=== PATIENT | female | born 1965 | race Caucasian/White ===

== ENCOUNTER 2016-08-26 16:59 | Emergency (ER) | payer OTHER ==
[2016-08-26 17:38] VITALS: BP 114/61; PULSE 71; TEMP 97.8; BMI 38.0
[2016-08-26] MEDS ORDERED: KETOROLAC TROMETHAMINE 60 MG/2 ML VIAL IM ONE (19:37)
[2016-08-26] MEDS ORDERED: diazePAM 5 MG TABLET PO ONE (19:38)
[2016-08-26] MEDS ORDERED: KETOROLAC TROMETHAMINE 60 MG/2 ML VIAL ONE (19:40)
[2016-08-26] MEDS ORDERED: diazePAM 5 MG TABLET ONE (19:40)
--- NOTE | 2016-08-26 20:36 | PDOC ---
History of Present Illness - General Chief Complaint: Back Pain Stated Complaint: BACK PAIN/LT LEG NUMB Time Seen by Provider: 08/26/16 19:10 History Source: Patient Exam Limitations: No Limitations - History of Present Illness Initial Comments: 08/26/16 20:31 bACK PAIN X 4 DAYS; NO TRAUMA; NO FEVER, CHILLS Occurred: reports: just prior to arrival Severity: reports: mild Pain Location: reports: back Method of Injury: Yes: other (NO TRAUMA) Past History - Past Medical History Allergies/Adverse Reactions: Allergies Allergy/AdvReac Type Severity Reaction Status Date / Time No Known Allergies Allergy Verified 08/26/16 17:35 Home Medications: Ambulatory Orders Cyclobenzaprine HCl [Flexeril -] 10 mg PO TID PRN #21 tablet 01/21/16 Naproxen [Naprosyn -] 500 mg PO BID PRN #14 tablet 01/21/16 Asthma: Yes GI Disorders: Yes (COLITIS, Diverticulitis, DIVERTICULOSIS) HTN: Yes Hypercholesterolemia: Yes Suicide Attempt (Hx): No - Immunization History Immunization Up to Date: Yes - Psycho/Social/Smoking Cessation Hx Anxiety: No Suicidal Ideation: No Smoking Status: Yes Smoking History: Current some day smoker Have you smoked in the past 12 months: Yes Number of Cigarettes Smoked Daily: 2 If you are a former smoker, when did you quit?: DID NOT HAVE BOOKLET IN ER Information on smoking cessation initiated: No 'Breaking Loose' booklet given: 12/09/15 Hx Alcohol Use: No Drug/Substance Use Hx: No Substance Use Type: None Hx Substance Use Treatment: No Review of Systems - Review of Systems Constitutional: No: Chills, Fever, Malaise HEENTM: No: Recent change in vision, Nose Congestion Respiratory: No: Symptoms reported, Cough Cardiac (ROS): No: Symptoms Reported, Chest Pain ABD/GI: No: Symptoms Reported : No: Symptoms Reported, Burning, Dysuria, Discharge, Hematuria, Incontinence , Urgency Musculoskeletal: No: Symptoms Reported Integumentary: No: Symptoms Reported, Rash Neurological: No: Symptoms reported, Numbness, Paresthesia, Tingling, Weakness *Physical Exam - Vital Signs Last Vital Signs Temp Pulse Resp BP Pulse Ox 97.8 F 71 19 114/61 98 08/26/16 17:35 08/26/16 17:35 08/26/16 17:35 08/26/16 17:35 08/26/16 17:35 - Physical Exam General Appearance: Yes: Appropriately Dressed, Apparent Distress HEENT: positive: TMs Normal, Pharynx Normal Neck: positive: Supple. negative: Tender, Rigid, Lymphadenopathy (R), Lymphadenopathy (L) Respiratory/Chest: negative: Chest Tender, Lungs Clear Cardiovascular: positive: Regular Rhythm, Regular Rate. negative: Murmur ED Treatment Course - Medications Given in the ED: ED Medications Discontinued Medications Generic Name Dose Route Start Last Admin Trade Name Uche PRN Reason Stop Dose Admin Diazepam 5 mg 08/26/16 19:38 08/26/16 19:49 Valium - PO 08/26/16 19:39 5 mg ONCE ONE Administration Ketorolac Tromethamine 60 mg 08/26/16 19:37 08/26/16 19:49 Toradol Injection - IM 08/26/16 19:38 60 mg ONCE ONE Administration Medical Decision Making - Medical Decision Making 08/26/16 20:43 WILL TREAT WITH NAPROSYN AND FLEXERIL *DC/Admit/Observation/Transfer Diagnosis at time of Disposition: Chronic low back pain Qualifiers: Back pain laterality: left Sciatica presence: with sciatica Sciatica laterality : sciatica of left side Qualified Code(s): M54.42 - Lumbago with sciatica, left side; G89.29 - Other chronic pain - Discharge Dispostion Disposition: HOME Condition at time of disposition: Stable Admit: No - Patient Instructions Additional Instructions: PLEASE USE FLEXERIL AND NAPROSYN BEFORE; FOLLOW UP WITH PAIN MANAGEMENT; REST - Post Discharge Activity Work/School Note: Back to Work
== END 2016-08-26 20:48 | disposition home or self-care (01) ==
LOC: JERFT 16:59
PROC: 3E0233Z Introduction of Anti-inflammatory into Muscle, Percutaneous Approach (ICD-10-PCS; principal; 2016-08-26)
DX: M54.42 Lumbago with sciatica, left side (principal); G89.29 Other chronic pain; I10 Essential (primary) hypertension; J45.909 Unspecified asthma, uncomplicated; E78.00 Pure hypercholesterolemia, unspecified; Z87.19 Personal history of other diseases of the digestive system
CPT/HCPCS: 96372; 99281-25

== ENCOUNTER 2016-08-28 18:12 | Emergency (ER) | payer OTHER ==
[2016-08-28] MEDS ORDERED: OXYCODONE/APAP 5/325MG COMBO TABLET PO ONE (18:22)
--- NOTE | 2016-08-28 18:28 | PDOC ---
*Physical Exam - Vital Signs Last Vital Signs Temp Pulse Resp BP Pulse Ox 97.7 F 100 H 18 148/97 100 08/28/16 18:20 08/28/16 18:20 08/28/16 18:20 08/28/16 18:20 08/28/16 18:20 ED Treatment Course - RADIOLOGY Radiology Studies Ordered: Category Date Time Status LUMBAR SPINE CT W/O CONTRAST [CT] Stat CT Scan 08/28/16 18:23 Ordered Medical Decision Making - Medical Decision Making 08/28/16 18:26 Rapid triage: Pt comes with 2 weeks of sciatica; worse in the last 2 days. Now crying because the muscle relaxants are not helping her. Pt will have HCG done even though she has had bilateral tubal ligation; she has irregular menses. She will get a CT L-spine to r/o cord involvement. *DC/Admit/Observation/Transfer Diagnosis at time of Disposition: Spinal stenosis Sciatica Qualifiers: Laterality: left Qualified Code(s): M54.32 - Sciatica, left side - Discharge Dispostion Disposition: HOME Condition at time of disposition: Improved - Prescriptions Prescriptions: Diazepam [Valium] 5 mg PO Q8H #6 tablet MDD 3 - Referrals Referrals: Clarisa Morrow MD [Primary Care Provider] - - Patient Instructions Printed Discharge Instructions: DI for Back Pain With Sciatica Additional Instructions: Discharge Instructions: -Discontinue flexeril use while taking Valium -Valium can cause drowsiness so do not drive while taking -Stretch your affected leg/butt/back multiple times per day -Follow up with your pain management doctor and your physical therapist as soon as possible
[2016-08-28 18:36] VITALS: BP 148/97; PULSE 100; TEMP 97.7; BMI 37.7
[2016-08-28] MEDS ORDERED: OXYCODONE/APAP 5/325MG COMBO TABLET ONE (18:38)
--- NOTE | 2016-08-28 18:46 | PDOC ---
History of Present Illness - General Chief Complaint: Pain, Acute Stated Complaint: LEG PAIN Time Seen by Provider: 08/28/16 18:20 History Source: Patient Exam Limitations: No Limitations - History of Present Illness Initial Comments: CHIEF COMPLAINT: 50 y/o afebrile female with PMH L4/L5 disc herniation (sees pain management and PT), HTN who was seen here 2 days ago for sciatica here for continued symptoms. HISTORY OF PRESENT ILLNESS: The patient states she was seen here 2 days ago and at [facility] 2 days before that. She has left lower back pain that radiates down her left butt and leg. She states it's burning. She was given flexeril to go home with but states it isn't helping. She denies f/c, n/v/d, CP, SOB, abd pain, saddle anesthesia, bowel/bladder incontinence. Vital signs on arrival are notable for pulse of 100. REVIEW OF SYSTEMS: GENERAL/CONSTITUTIONAL: No fever/chills. No weakness. No weight change. HEAD, EYES, EARS, NOSE AND THROAT: No change in vision. No ear pain or discharge. No sore throat. CARDIOVASCULAR: No chest pain or shortness of breath. RESPIRATORY: No cough, wheezing, or hemoptysis. GASTROINTESTINAL: No abd pain, nausea, vomiting, diarrhea. GENITOURINARY: No dysuria, frequency, or change in urination. MUSCULOSKELETAL: No joint or muscle swelling or pain. No neck or back pain. SKIN: No rash or easy bruising. NEUROLOGIC: No headache, vertigo, loss of consciousness, or loss of sensation. PHYSICAL EXAM: GENERAL: The patient is awake, alert, and fully oriented, in moderate obvious discomfort. HEAD: Normal with no signs of trauma. ENT: Pupils equal, round and reactive to light, extraocular movements intact, sclera anicteric, conjunctiva clear. Neck supple. LUNGS: Clear to auscultation bilaterally. Normal excursion. No respiratory distress or use of accessory muscles. CV: RRR, S1/S2, no MRG. Cap refill < 2 sec. ABDOMEN: Soft, non-distended, non-tender even to deep palpation, no hepatomegaly or splenomegaly, no masses. BACK: Midline lumbar spine TTP at level of L4/5 which patient admits is normal for her. Pain reproduced with palpation of left gluteal and piriformis muscles. EXTREMITIES: Normal range of motion, no edema. NEUROLOGICAL: Normal speech, normal gait. CN II-XII grossly intact. No saddle anesthesia. PSYCH: Normal mood, normal affect. SKIN: Warm, dry, normal turgor, no rashes or lesions noted. Past History - Past Medical History Allergies/Adverse Reactions: Allergies Allergy/AdvReac Type Severity Reaction Status Date / Time No Known Allergies Allergy Verified 08/28/16 18:19 Home Medications: Ambulatory Orders Cyclobenzaprine HCl [Flexeril -] 10 mg PO TID PRN #21 tablet 01/21/16 Naproxen [Naprosyn -] 500 mg PO BID PRN #14 tablet 01/21/16 Diazepam [Valium] 5 mg PO Q8H #6 tablet MDD 3 08/28/16 Asthma: Yes GI Disorders: Yes (COLITIS, Diverticulitis, DIVERTICULOSIS) HTN: Yes Hypercholesterolemia: Yes Suicide Attempt (Hx): No - Immunization History Immunization Up to Date: Yes - Psycho/Social/Smoking Cessation Hx Anxiety: No Suicidal Ideation: No Smoking Status: Yes Smoking History: Never smoked Have you smoked in the past 12 months: Yes Number of Cigarettes Smoked Daily: 2 If you are a former smoker, when did you quit?: DID NOT HAVE BOOKLET IN ER Information on smoking cessation initiated: Yes 'Breaking Loose' booklet given: 08/28/16 Hx Alcohol Use: No Drug/Substance Use Hx: No Substance Use Type: None Hx Substance Use Treatment: No *Physical Exam - Vital Signs Last Vital Signs Temp Pulse Resp BP Pulse Ox 97.7 F 100 H 18 148/97 100 08/28/16 18:20 08/28/16 18:20 08/28/16 18:20 08/28/16 18:20 08/28/16 18:20 Medical Decision Making - Medical Decision Making A/P: 50 y/o female with sciatica. No signs of cord compression. Percocet given in triage. HCG and Lumbar spine CT ordered in triage. Plan is as follows: 1. Await CT results 2. PO valium CT scan lumbar spine IMPRESSION: Degenerative spine disease with lower lumbar neuroforaminal narrowing. This appears similar to an MRI from 10/2015. The patient states she feels better after valium. Showed her some stretching to do multiple times per day at home as well to help with the pain. Will send # 6 pills of valium to the pharmacy. Instructed the patient not to drive while taking. Suggested she f/u with her pain management doc and her PT as soon as possible. The patient verbalizes understanding of all instructions, has no further questions and is awaiting discharge. *DC/Admit/Observation/Transfer Diagnosis at time of Disposition: Sciatica Qualifiers: Laterality: left Qualified Code(s): M54.32 - Sciatica, left side - Discharge Dispostion Disposition: HOME Condition at time of disposition: Improved - Prescriptions Prescriptions: Diazepam [Valium] 5 mg PO Q8H #6 tablet MDD 3 - Referrals Referrals: Clarisa Morrow MD [Primary Care Provider] - - Patient Instructions Printed Discharge Instructions: DI for Back Pain With Sciatica Additional Instructions: Discharge Instructions: -Discontinue flexeril use while taking Valium -Valium can cause drowsiness so do not drive while taking -Stretch your affected leg/butt/back multiple times per day -Follow up with your pain management doctor and your physical therapist as soon as possible
[2016-08-28] MEDS ORDERED: diazePAM 5 MG TABLET PO ONE (19:35)
[2016-08-28] MEDS ORDERED: diazePAM 5 MG TABLET ONE (19:40)
== END 2016-08-28 21:18 | disposition home or self-care (01) ==
LOC: JER 18:12 → JERFT 18:12
DX: M54.32 Sciatica, left side (principal); I10 Essential (primary) hypertension; M51.27 Other intervertebral disc displacement, lumbosacral region
CPT/HCPCS: 72131-TC; 84703; 99281-25

== ENCOUNTER 2017-02-11 17:22 | Emergency (ER) | payer OTHER ==
[2017-02-11 17:35] VITALS: BP 154/93; PULSE 69; TEMP 97.9; BMI 37.3
[2017-02-11] MEDS ORDERED: diazePAM 5 MG TABLET PO ONE (18:24)
[2017-02-11] MEDS ORDERED: KETOROLAC TROMETHAMINE 60 MG/2 ML VIAL IM ONE (18:24)
[2017-02-11] MEDS ORDERED: diazePAM 5 MG TABLET ONE (18:27)
[2017-02-11] MEDS ORDERED: KETOROLAC TROMETHAMINE 60 MG/2 ML VIAL ONE (18:27)
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
== END 2017-02-11 19:25 | disposition home or self-care (01) ==
LOC: JER 17:22 → JERFT 17:22
PROC: 3E0233Z Introduction of Anti-inflammatory into Muscle, Percutaneous Approach (ICD-10-PCS; principal; 2017-02-11)
DX: M54.16 Radiculopathy, lumbar region (principal); V89.2XXS Person injured in unspecified motor-vehicle accident, traffic, sequela; I10 Essential (primary) hypertension; J45.909 Unspecified asthma, uncomplicated; E78.00 Pure hypercholesterolemia, unspecified; F17.210 Nicotine dependence, cigarettes, uncomplicated; Z87.19 Personal history of other diseases of the digestive system
CPT/HCPCS: 96372; 99281-25

== ENCOUNTER 2021-04-11 17:10 | Emergency (ER) | payer OTHER ==
[2021-04-11 17:18] VITALS: TEMP 97.9; BMI 37.2
[2021-04-11] MEDS ORDERED: KETOROLAC TROMETHAMINE 30 MG/1 ML VIAL IVPUSH ONE (17:41)
[2021-04-11] MEDS ORDERED: diazePAM 5 MG TABLET PO ONE (17:41)
[2021-04-11] MEDS ORDERED: KETOROLAC TROMETHAMINE 30 MG/1 ML VIAL IM ONE (17:52)
[2021-04-11] MEDS ORDERED: KETOROLAC TROMETHAMINE 30 MG/1 ML VIAL ONE (17:53)
[2021-04-11] MEDS ORDERED: diazePAM 5 MG TABLET ONE (17:54)
[2021-04-11 22:57] VITALS: BP 154/83; PULSE 73
== END 2021-04-11 22:58 | disposition home or self-care (01) ==
LOC: JER 17:10
PROC: 3E0233Z Introduction of Anti-inflammatory into Muscle, Percutaneous Approach (ICD-10-PCS; principal; 2021-04-11)
DX: M71.22 Synovial cyst of popliteal space [Baker], left knee (principal)
CPT/HCPCS: 73552-TC-LT-FY; 93971-TC; 96372; 99284-25

== ENCOUNTER 2021-11-16 21:27 | Emergency (ER) | payer OTHER ==
[2021-11-16 21:32] VITALS: BP 136/75; PULSE 102; TEMP 98.6; BMI 37.5
[2021-11-16] MEDS ORDERED: ONDANSETRON 4 MG/2 ML VIAL IVPUSH ONE (22:15)
[2021-11-16] MEDS ORDERED: ACETAMINOPHEN 1000 MG/100 ML BAG IVPB ONE (22:15)
[2021-11-16] MEDS ORDERED: SUCRALFATE 1 GM TABLET (FP) PO ONE (22:16)
[2021-11-16] MEDS ORDERED: MAG HYDROX/AL HYDROX/SIMETH 30 ML UNIT-DOSE CUP PO ONE (22:16)
[2021-11-16] MEDS ORDERED: FAMOTIDINE 20 MG/50 ML IVPB 20 MG/50 ML MG IVPB ONE (22:16)
[2021-11-16] MEDS ORDERED: LACTATED RINGERS SOLUTION 1000 ML INFUS.BAG IV ONE (22:33)
[2021-11-16] MEDS ORDERED: ONDANSETRON 4 MG/2 ML VIAL ONE (22:41)
[2021-11-16] MEDS ORDERED: SUCRALFATE 1 GM TABLET (FP) ONE (22:41)
[2021-11-16] MEDS ORDERED: ACETAMINOPHEN INJECTION 100 ML IVPB ONE (22:41)
[2021-11-16] MEDS ORDERED: MAG HYDROX/AL HYDROX/SIMETH 30 ML UNIT-DOSE CUP ONE (22:41)
[2021-11-16 22:51] LABS: BASO % 0.3 % (0-2.0); CHLORIDE 102 mmol/L (98-107); HEMATOCRIT 41.2 % (32.4-45.2); HEMOGLOBIN 13.4 GM/dL (10.7-15.3); LYMPH % 9.7 % (8-40); MCH 29.6 pg (25.7-33.7); MCHC 32.7 g/dl (32.0-36.0); MEAN CELL VOLUME 90.6 fl (80-96); MEAN PLT VOLUME 9.7 fl (7.5-11.1); MONO % 5.2 % (3.8-10.2); NEUT % 82.8 % (42.8-82.8); PLATELET COUNT 221 10^3/uL (134-434); RBC 4.54 M/mm3 (3.60-5.2); RDW 13.8 % (11.6-15.6); SODIUM 126 mmol/L (136-145); WHITE BLOOD COUNT 8.3 K/mm3 (4.0-10.0)
[2021-11-16 22:53] LABS: ALBUMIN 3.6 g/dl (3.4-5.0); BLOOD UREA NITROGEN 19.5 mg/dL (7-18); CALCIUM 8.8 mg/dL (8.5-10.1); CO2 24 mmol/L (21-32); GLUCOSE,RANDOM 113 mg/dL (74-106); LIPASE 118 U/L (73-393); MAGNESIUM 2.6 mg/dL (1.8-2.4)
[2021-11-16 22:56] LABS: CREATININE 0.8 mg/dL (0.55-1.3)
[2021-11-16 22:58] LABS: TOT PROT 7.8 g/dl (6.4-8.2)
[2021-11-16 22:59] LABS: ALK PHOS 72 U/L (45-117)
[2021-11-16] MEDS ORDERED: FAMOTIDINE 10 MG/ML VIAL IVPB ONE (23:08)
[2021-11-16 23:42] LABS: CALCIUM 9.2 mg/dL (8.5-10.1)
[2021-11-16 23:44] LABS: ANION GAP 1 MMOL/L (8-16); SGOT/AST 132 U/L (15-37); SGPT/ALT 67 U/L (13-61)
[2021-11-17 00:31] LABS: CREATININE 0.7 mg/dL (0.55-1.3)
[2021-11-17 00:32] LABS: BILIRUBIN,TOTAL 0.2 mg/dL (0.2-1); TOT PROT 6.8 g/dl (6.4-8.2)
[2021-11-17] MEDS ORDERED: LACTATED RINGERS SOLUTION 1000 ML INFUS.BAG IV ONE (00:37)
[2021-11-17] MEDS ORDERED: morphine CARPU-JECT 4 MG/1 ML DISP.SYRIN IVPUSH ONE (00:37)
[2021-11-17] MEDS ORDERED: morphine SULFATE 4 MG/ML VIAL ONE (00:41)
[2021-11-17 01:09] LABS: ALBUMIN 3.8 g/dl (3.4-5.0); BLOOD UREA NITROGEN 18.6 mg/dL (7-18)
== END 2021-11-17 02:22 | disposition home or self-care (01) ==
LOC: JER 21:27
PROC: 3E033GC Introduction of Other Therapeutic Substance into Peripheral Vein, Percutaneous Approach (ICD-10-PCS; principal; 2021-11-16)
DX: R10.13 Epigastric pain (principal)
CPT/HCPCS: 36415; 71045-TC-FY; 74177-TC; 76705-TC; 80053; 83690; 83735; 84484; 84703; 85025; 93005; 93010; 99285-25; C9803-CS; U0003; U0005

== ENCOUNTER 2022-01-27 05:27 | Emergency (ER) | payer OTHER ==
[2022-01-27 05:41] VITALS: BP 116/76; PULSE 78; TEMP 98.6; BMI 36.3
[2022-01-27] MEDS ORDERED: ACETAMINOPHEN 1000 MG/100 ML BAG IVPB ONE (06:01)
[2022-01-27] MEDS ORDERED: ACETAMINOPHEN INJECTION 100 ML IVPB ONE (06:17)
[2022-01-27 07:21] LABS: BLOOD UREA NITROGEN 11.5 mg/dL (7-18); CALCIUM 9.3 mg/dL (8.5-10.1)
[2022-01-27 07:24] LABS: CREATININE 0.7 mg/dL (0.55-1.3)
[2022-01-27 07:26] LABS: BILIRUBIN,TOTAL 0.3 mg/dL (0.2-1); TOT PROT 7.3 g/dl (6.4-8.2)
[2022-01-27] MEDS ORDERED: ONDANSETRON 4 MG/2 ML VIAL IVPUSH ONE (07:37)
[2022-01-27] MEDS ORDERED: SODIUM CHLORIDE 0.9% 500 ML INFUS.BAG IV ONE (07:38)
[2022-01-27] MEDS ORDERED: FAMOTIDINE 20 MG/50 ML IVPB 20 MG/50 ML MG IVPB ONE ×2 (07:38→08:23)
[2022-01-27] MEDS ORDERED: morphine CARPU-JECT 2 MG/1 ML DISP.SYRIN IVPUSH ONE (07:45)
[2022-01-27] MEDS ORDERED: MAG HYDROX/AL HYDROX/SIMETH 30 ML UNIT-DOSE CUP PO ONE (07:47)
[2022-01-27] MEDS ORDERED: ONDANSETRON 4 MG/2 ML VIAL ONE (08:23)
[2022-01-27 08:44] LABS: BASO % 0.3 % (0-2.0); EOS % 1.4 % (0-4.5); HEMATOCRIT 41.4 % (32.4-45.2); HEMOGLOBIN 13.7 GM/dL (10.7-15.3); LYMPH % 17.7 % (8-40); MCH 30.8 pg (25.7-33.7); MCHC 33.1 g/dl (32.0-36.0); MEAN CELL VOLUME 93.2 fl (80-96); MEAN PLT VOLUME 9.7 fl (7.5-11.1); MONO % 7.7 % (3.8-10.2); NEUT % 72.9 % (42.8-82.8); PLATELET COUNT 182 10^3/uL (134-434); RBC 4.45 M/mm3 (3.60-5.2); RDW 14.9 % (11.6-15.6); WHITE BLOOD COUNT 8.9 K/mm3 (4.0-10.0)
[2022-01-27] MEDS ORDERED: MAG HYDROX/AL HYDROX/SIMETH 30 ML UNIT-DOSE CUP ONE (08:44)
[2022-01-27 08:46] LABS: URINE APPEARANCE CLEAR; URINE BILIRUBIN NEGATIVE (NEGATIVE); URINE COLOR YELLOW; URINE GLUCOSE (UA) NEGATIVE (NEGATIVE); URINE KETONE NEGATIVE (NEGATIVE); URINE LEUK ESTERASE NEGATIVE (NEGATIVE); URINE NITRITE NEGATIVE (NEGATIVE); URINE PROTEIN NEGATIVE (NEGATIVE); URINE UROBILINOGEN 0.2 mg/dL (0.2-1.0)
== END 2022-01-27 11:48 | disposition home or self-care (01) ==
LOC: JER 05:27
PROC: 3E033GC Introduction of Other Therapeutic Substance into Peripheral Vein, Percutaneous Approach (ICD-10-PCS; principal; 2022-01-27)
DX: R10.84 Generalized abdominal pain (principal)
CPT/HCPCS: 71045-TC-FY; 76705-TC; 80053; 81003; 83690; 84484; 85025; 87086; 93005; 93010; 99285-25

== ENCOUNTER 2023-04-28 21:39 | Inpatient (IN) | payer OTHER ==
[2023-04-28 21:49] VITALS: BMI 35.4
[2023-04-28] MEDS ORDERED: FAMOTIDINE 20 MG/50 ML IVPB 20 MG/50 ML MG IVPB ONE ×2 (22:15→22:26)
[2023-04-28] MEDS ORDERED: SODIUM CHLORIDE 0.9% 500 ML INFUS.BAG IV ONE (22:15)
[2023-04-28] MEDS ORDERED: ONDANSETRON 4 MG/2 ML VIAL IVPUSH ONE (22:15)
[2023-04-28] MEDS ORDERED: ACETAMINOPHEN 1000 MG/100 ML BAG IVPB ONE (22:15)
[2023-04-28] MEDS ORDERED: MAG HYDROX/AL HYDROX/SIMETH -MYLANTA- ORAL SUSPENSION PO ONE (22:17)
[2023-04-28] MEDS ORDERED: ACETAMINOPHEN INJECTION 100 ML IVPB ONE (22:25)
[2023-04-28] MEDS ORDERED: ONDANSETRON 4 MG/2 ML VIAL ONE (22:26)
[2023-04-28] MEDS ORDERED: MAG HYDROX/AL HYDROX/SIMETH 30 ML UNIT-DOSE CUP ONE (22:26)
[2023-04-28 22:53] LABS: HEMATOCRIT 43.5 % (32.4-45.2); HEMOGLOBIN 14.6 GM/dL (10.7-15.3); MCH 30.5 pg (25.7-33.7); MCHC 33.5 g/dl (32.0-36.0); MEAN CELL VOLUME 91.1 fl (80-96); MONO % 5.4 % (3.8-10.2); NEUT % 76.6 % (42.8-82.8); PLATELET COUNT 261 10^3/uL (134-434); RBC 4.77 M/mm3 (3.60-5.2); RDW 14.3 % (11.6-15.6); WHITE BLOOD COUNT 10.4 K/mm3 (4.0-10.0)
[2023-04-28 23:16] LABS: POTASSIUM 3.5 mmol/L (3.5-5.1)
[2023-04-28 23:18] LABS: CALCIUM 8.7 mg/dL (8.5-10.1)
[2023-04-28 23:19] LABS: ALBUMIN 3.6 g/dl (3.4-5.0)
[2023-04-28 23:23] LABS: BILIRUBIN,TOTAL 0.2 mg/dL (0.2-1); TOT PROT 7.1 g/dl (6.4-8.2)
[2023-04-29] MEDS: SUCRALFATE 1 GM/10 ML UNIT DOSE CUPS PO STA ×2 (01:38→13:28)
[2023-04-29] MEDS ORDERED: SUCRALFATE 1 GM TABLET (FP) ONE ×2 (01:40→08:20)
[2023-04-29] MEDS ORDERED: morphine CARPU-JECT 4 MG/1 ML DISP.SYRIN IVPUSH ONE (02:10)
[2023-04-29] MEDS ORDERED: morphine SULFATE 4 MG/ML VIAL ONE (02:35)
[2023-04-29] MEDS ORDERED: ACETAMINOPHEN 1000 MG/100 ML BAG IVPB ONE (07:20)
[2023-04-29] MEDS ORDERED: SUCRALFATE 1 GM TABLET (FP) PO ONE (07:20)
[2023-04-29] MEDS ORDERED: MAG HYDROX/AL HYDROX/SIMETH -MYLANTA- ORAL SUSPENSION PO ONE (07:20)
[2023-04-29] MEDS ORDERED: FAMOTIDINE 20 MG/50 ML IVPB 20 MG/50 ML MG IVPB ONE ×2 (07:20→08:20)
[2023-04-29] MEDS ORDERED: ACETAMINOPHEN INJECTION 100 ML IVPB ONE ×2 (08:20→14:25)
[2023-04-29] MEDS ORDERED: MAG HYDROX/AL HYDROX/SIMETH 30 ML UNIT-DOSE CUP ONE (08:20)
[2023-04-29] MEDS ORDERED: KETOROLAC TROMETHAMINE 30 MG/1 ML VIAL ONE ×2 (10:10→17:22)
[2023-04-29] MEDS ORDERED: PANTOPRAZOLE SODIUM 40 MG VIAL ONE ×2 (10:11→23:17)
[2023-04-29] MEDS: SODIUM CHLORIDE 1,000 ML IV SCH (10:24)
[2023-04-29] MEDS: PANTOPRAZOLE SODIUM 40 MG VIAL IVPUSH SCH ×2 (10:24→23:19)
[2023-04-29] MEDS: KETOROLAC TROMETHAMINE 30 MG/1 ML VIAL IVPUSH PRN ×2 (10:24→17:22)
[2023-04-29] MEDS: ACETAMINOPHEN 1000 MG/100 ML BAG IVPB PRN (14:28)
[2023-04-29] MEDS ORDERED: ceFAZolin SODIUM 1 GM VIAL ONE (17:41)
[2023-04-29] MEDS: CEFAZOLIN 1 GM in DEXTROSE 5%-WATER - 50 ML IVPB SCH (18:09)
[2023-04-30] MEDS: ACETAMINOPHEN 1000 MG/100 ML BAG IVPB PRN ×3 (00:20→21:02)
[2023-04-30] MEDS: CEFAZOLIN 1 GM in DEXTROSE 5%-WATER - 50 ML IVPB SCH ×2 (02:32→09:44)
[2023-04-30] MEDS: KETOROLAC TROMETHAMINE 30 MG/1 ML VIAL IVPUSH PRN (05:18)
[2023-04-30] MEDS: SODIUM CHLORIDE 1,000 ML IV SCH ×2 (09:37→17:15)
[2023-04-30] MEDS: PANTOPRAZOLE SODIUM 40 MG VIAL IVPUSH SCH ×2 (09:44→21:03)
[2023-04-30 10:17] LABS: HEMATOCRIT 39.5 % (32.4-45.2); HEMOGLOBIN 13.2 GM/dL (10.7-15.3); MCH 30.7 pg (25.7-33.7); MCHC 33.3 g/dl (32.0-36.0); MEAN PLT VOLUME 10.3 fl (7.5-11.1); PLATELET COUNT 226 10^3/uL (134-434); RBC 4.29 M/mm3 (3.60-5.2); RDW 14.2 % (11.6-15.6); WHITE BLOOD COUNT 4.7 K/mm3 (4.0-10.0)
[2023-04-30 12:20] LABS: POTASSIUM 3.9 mmol/L (3.5-5.1)
[2023-04-30 12:21] LABS: ALBUMIN 3.5 g/dl (3.4-5.0)
[2023-04-30 12:22] LABS: BLOOD UREA NITROGEN 10.8 mg/dL (7-18); CALCIUM 8.7 mg/dL (8.5-10.1)
[2023-04-30 12:24] LABS: CREATININE 0.6 mg/dL (0.55-1.3)
[2023-04-30 12:26] LABS: TOT PROT 6.6 g/dl (6.4-8.2)
[2023-04-30 12:27] LABS: BILIRUBIN,TOTAL 0.2 mg/dL (0.2-1)
[2023-04-30] MEDS ORDERED: PROPOFOL 20 ML ONE ×2 (13:10→15:16)
[2023-04-30] MEDS ORDERED: FENTANYL CITRATE/PF 50 MCG/ML VIAL ONE ×5 (13:10→16:28)
[2023-04-30] MEDS ORDERED: MIDAZOLAM HCL 2 MG/2 ML SINGLE DOSE VIAL ONE (13:11)
[2023-04-30] MEDS ORDERED: ROCURONIUM BROMIDE 50 MG/5 ML SYRINGE ONE (13:11)
[2023-04-30] MEDS ORDERED: LACTATED RINGERS SOLUTION 1,000 ML IV SCH (13:15)
[2023-04-30] MEDS ORDERED: ONDANSETRON 4 MG/2 ML VIAL IVPUSH PRN ×2 (13:15→15:40)
[2023-04-30] MEDS ORDERED: BUPIVACAINE HCL/PF 0.5% (5MG/ML) 10 ML VIAL ONE (13:22)
[2023-04-30] MEDS ORDERED: ceFAZolin SODIUM 1 GM VIAL IVPB ONE (14:08)
[2023-04-30] MEDS ORDERED: BUPIVACAINE HCL/PF 0.5% (5MG/ML) 10 ML VIAL IJ ONE ×2 (14:16)
[2023-04-30] MEDS ORDERED: NEOSTIGMINE METHYLSULFATE 0.5 MG/1 ML - 10 ML MDV ONE (15:05)
[2023-04-30] MEDS ORDERED: IBUPROFEN 600 MG TABLET (FP) PO PRN (15:40)
[2023-04-30] MEDS ORDERED: ACETAMINOPHEN 500 MG TABLET (FP) PO PRN (15:40)
[2023-04-30] MEDS ORDERED: ACETAMINOPHEN INJECTION 100 ML IVPB ONE (16:04)
[2023-04-30] MEDS ORDERED: ACETAMINOPHEN 1000 MG/100 ML BAG IVPB ONE (16:06)
[2023-04-30] MEDS: FENTANYL CITRATE/PF 50 MCG/ML VIAL IVPUSH PRN ×4 (16:17→16:35)
[2023-04-30] MEDS: oxyCODONE HCL 5 MG TABLET PO PRN ×2 (17:44→22:54)
[2023-05-01] MEDS: oxyCODONE HCL 5 MG TABLET PO PRN ×3 (03:16→15:21)
[2023-05-01] MEDS: SODIUM CHLORIDE 1,000 ML IV SCH (06:42)
[2023-05-01] MEDS: ACETAMINOPHEN 1000 MG/100 ML BAG IVPB PRN (08:41)
[2023-05-01 09:56] LABS: BASO % 0.3 % (0-2.0); EOS % 0.6 % (0-4.5); HEMATOCRIT 40.4 % (32.4-45.2); LYMPH % 25.2 % (8-40); MCHC 32.3 g/dl (32.0-36.0); MEAN CELL VOLUME 92.9 fl (80-96); MEAN PLT VOLUME 10.1 fl (7.5-11.1); MONO % 7.2 % (3.8-10.2); NEUT % 66.7 % (42.8-82.8); PLATELET COUNT 237 10^3/uL (134-434); RBC 4.35 M/mm3 (3.60-5.2); RDW 14.2 % (11.6-15.6); WHITE BLOOD COUNT 8.6 K/mm3 (4.0-10.0)
[2023-05-01] MEDS ORDERED: propRANOLol HCL 10 MG TABLET PO SCH (10:00)
[2023-05-01] MEDS ORDERED: PATIENT'S OWN MEDICATION (NON-FORMULARY) (Amlodipine/Valsartan/Hcthiazid [Amlod-Valsa-Hctz PO SCH (10:00)
[2023-05-01] MEDS ORDERED: CYCLOBENZAPRINE HCL 5 MG TABLET PO SCH (10:00)
[2023-05-01] MEDS: PANTOPRAZOLE SODIUM 40 MG VIAL IVPUSH SCH (10:07)
[2023-05-01 10:11] LABS: POTASSIUM 3.9 mmol/L (3.5-5.1)
[2023-05-01 10:13] LABS: ALBUMIN 3.6 g/dl (3.4-5.0)
[2023-05-01 10:19] LABS: BLOOD UREA NITROGEN 7.4 mg/dL (7-18); CALCIUM 8.8 mg/dL (8.5-10.1); CREATININE 0.7 mg/dL (0.55-1.3)
[2023-05-01 10:27] LABS: BILIRUBIN,TOTAL 0.3 mg/dL (0.2-1)
[2023-05-01] MEDS ORDERED: VALSARTAN 160 MG TABLET PO SCH (12:00)
[2023-05-01] MEDS ORDERED: amLODIPine BESYLATE 10 MG TABLET (FP) PO SCH (12:00)
[2023-05-01] MEDS ORDERED: HYDROCHLOROTHIAZIDE 12.5 MG CAPSULE (FP) PO SCH (12:00)
[2023-05-01 13:12] VITALS: TEMP 98.5
[2023-05-01 15:42] VITALS: BP 127/69; PULSE 65; RESP 20
== END 2023-05-01 18:32 | disposition home or self-care (01) | DRG 263 ==
LOC: JER 21:39 → JERBED 04-29 07:03 → J8W 04-29 23:44
PROVIDERS: ADMIT Family Medicine; ATTEND Family Medicine
PROC: 0FT44ZZ Resection of Gallbladder, Percutaneous Endoscopic Approach (ICD-10-PCS; principal; 2023-04-30 09:30)
DX: K80.00 Calculus of gallbladder with acute cholecystitis without obstruction (principal); I10 Essential (primary) hypertension; K86.2 Cyst of pancreas; K50.90 Crohn's disease, unspecified, without complications; F17.210 Nicotine dependence, cigarettes, uncomplicated
CPT/HCPCS: 36415; 74177-TC; 74181-TC; 76705-TC; 80053; 83690; 84484; 85025; 85027; 93005; 93010; 94760; 99285-25; Q9967